=== PATIENT | male | born 1980 | race Caucasian/White ===

== ENCOUNTER 2019-08-25 16:29 | Inpatient (IN) | payer OTHER ==
[~2019-08-25] VITALS: Ht 165.1 cm; Wt 90.7 kg
--- NOTE | ~2019-08-25 | OP ---
PATIENT NAME: JANEL WILLIS MEDICAL RECORD: [id number] :78 LOCATION:[facility] ADMISSION DATE:08/25/19 SURGEON: NESTOR WANG MD DATE OF OPERATION: 08/26/2019 PREOPERATIVE DIAGNOSIS: Symptomatic incarcerated ventral hernia. POSTOPERATIVE DIAGNOSIS: Symptomatic incarcerated falciform ventral hernia. PROCEDURE: Laparoscopic incarcerated falciform ventral hernia repair with 4.[address] mesh with the echo positioning system. SURGEON: Nestor Wang MD ASSURANCE SOURCING MANAGER: None. BLOOD LOSS: Less than 50 cc. ANESTHESIA: General. COMPLICATIONS: None. The risks, possible complications and alternatives to the procedure were explained to the patient. He elects to proceed. Discussion specifically included, but was not limited to, bleeding requiring emergency reoperation, infection, intestinal injury as well as reherniation. OPERATIVE COURSE: The patient was conveyed the operating room electively on 08/26/2019. General anesthesia was induced by the anesthesia staff. The abdomen was sterilely prepped and draped. A transverse incision was accomplished in the left upper quadrant. A Veress needle was inserted through the skin yaz into the peritoneal cavity. CO2 insufflation was begun. Once a sufficient pneumoperitoneum had been achieved, a 12-mm trocar was inserted through this incision. Two 5-mm trocars were inserted in the right side of the abdomen and another 5-mm trocar was inserted in the left lower quadrant. During insertion of the Veress needle and all trocars, there appeared to have been no injury to the bowels, any intraperitoneal or retroperitoneal structures. I began to dissect some preperitoneal fat in the midline. I identified a small incarcerated umbilical hernia. We noted that he had an umbilical hernia preoperatively. We both agreed that we would not repair this as it would require a much larger mesh to cover both hernia defects. The umbilical hernia was asymptomatic. A prevesicular flap was created with the Harmonic scalpel. At no time was there any bladder injury. Intravenous methylene blue was given. We noted no leakage of methylene blue from the bladder. I took down the falciform ligament as well as the anterior portion of the triangular ligament of the liver. This was done with the Harmonic scalpel as well. I reduced the incarcerated contents, which consisted of preperitoneal fat as well as falciform ligament. This was reduced in its entirety. A small skin yaz was accomplished over the falciform hernia defect. I advanced the laparoscopic suture passer down through the falciform ligament hernia defect. OPERATIVE REPORT [id number] JANEL WILLIS I then advanced a Ventralight ST mesh through the 12-mm trocar. The tail of the positioning system was grasped with the laparoscopic suture passer and was withdrawn out through the skin. The tail was shortened. It was used to inflate the positioning system. The herniorrhaphy was accomplished with 2 different types of fixation devices. The Optifix was used circumferentially to tack the mesh in place and to position it. I then completed the herniorrhaphy with circumferential tacking of the SorbaFix Tacker. The positioning system was removed in its entirety. I aspirated. There was no bleeding even at low pressure of 8. The Lm-Dion suture closure device and 0 Vicryl sutures were used to close the muscle at the 12-mm trocar site. All the trocars were removed and the abdomen desufflated. The skin incisions were closed with interrupted intracuticular 3-0 Vicryls. Benzoin and Steri-Strips were applied. The patient was then extubated and conveyed to post-anesthesia care unit where he was in stable condition. He will be dismissed home later today on [place] as well as [place]. I will see him in the office in about 3 weeks. TRANSINT:[id number] Voice Confirmation ID: [id number] DOCUMENT ID: [id number] NESTOR WANG MD CC: NESTOR CARRASQUILLO MD, GARRY THEODORE MD and MIKEY BLUE [phone] DICTATION DATE: 08/26/19 1509 RN TEACHER: 08/26/192220 DIS IN 08/28/19 [facility] [address] [place] [address]
[2019-08-25 16:56] LABS: BASOPHILS 0.1 % (0-2); EOSINOPHILS 1.8 % (0-7); HEMATOCRIT 47.9 % (42.0-54.0); HEMOGLOBIN 17.4 g/dL (13.5-17.5); IMMATURE GRANULOCYTES 0.1 % (0-5); LYMPHOCYTES 21.8 % (15-50); MCH 32.3 pg (26.0-34.0); MCHC 36.3 g/dL (31.0-37.0); MCV 88.9 fL (80.0-100.0); MEAN PLATELET VOLUME 10.8 fL (7.4-10.4); MONOCYTES 8.5 % (2-11); NEUTROPHILS 67.7 % (40-80); PLATELET COUNT 259 10x3/uL (130-400); RBC 5.39 10x6/uL (4.20-6.10); RDW 12.3 % (11.5-14.5); WBC 7.3 10x3/uL (4.8-10.8)
[2019-08-25 17:07] LABS: CALC OSMOLALITY 276 mosm/kg (275-300); CALCIUM 8.8 mg/dL (8.5-10.1); CARBON DIOXIDE 28.7 mmol/L (21.0-32.0); CHLORIDE - SERUM 105 mmol/L (98-107); CREATININE - SERUM 1.5 mg/dL (0.6-1.3); GLUCOSE 104 mg/dL (74-106); SODIUM 138 mmol/L (136-145); UREA NITROGEN 15 mg/dL (7-18); eGFR NON AFRICAN AMERICAN 55 mL/min (90-120)
[2019-08-25 17:15] LABS: ALBUMIN 3.9 g/dL (3.4-5.0); ALKALINE PHOSPHATASE 62 U/L (30-120); ALT (SGPT) 17 U/L (10-68); AMYLASE - SERUM 50 U/L (25-115); LIPASE 121 U/L (73-393); PROTEIN - SERUM 6.9 g/dL (6.4-8.2); TROPONIN-I < 0.017 ng/mL (0.000-0.060)
[2019-08-25 18:07] VITALS: BP 124/76
[2019-08-25 18:14] LABS: BILIRUBIN NEGATIVE (NEGATIVE); GLUCOSE NEGATIVE (NEGATIVE); KETONE NEGATIVE (NEGATIVE); NITRITE NEGATIVE (NEGATIVE); UROBILINOGEN NORMAL (NORMAL)
[2019-08-25 18:42] VITALS: BP 142/81
--- NOTE | 2019-08-25 19:47 | NUR ---
ATTEMPTED TO CALL REPORT, NURSE ON FLOOR UNAVAILABLE AT THIS TIME.
[2019-08-25 20:53] VITALS: BP 111/52; BMI 33.3
[2019-08-26] VITALS (11 sets, daily range): BP systolic 105–145; BP diastolic 65–87; Ht 165.1 cm; Wt 90.7 kg
[2019-08-26 05:28] LABS: BASOPHILS 0.3 % (0-2); EOSINOPHILS 2.5 % (0-7); HEMATOCRIT 45.1 % (42.0-54.0); HEMOGLOBIN 15.9 g/dL (13.5-17.5); IMMATURE GRANULOCYTES 0.3 % (0-5); LYMPHOCYTES 27.2 % (15-50); MCH 31.6 pg (26.0-34.0); MCHC 35.3 g/dL (31.0-37.0); MCV 89.7 fL (80.0-100.0); MEAN PLATELET VOLUME 11.2 fL (7.4-10.4); MONOCYTES 7.6 % (2-11); NEUTROPHILS 62.1 % (40-80); PLATELET COUNT 266 10x3/uL (130-400); RBC 5.03 10x6/uL (4.20-6.10); RDW 12.5 % (11.5-14.5)
[2019-08-26 05:42] LABS: APTT 29.6 SECONDS (22.8-39.4); INR 1.05 (0.85-1.17); PROTIME 13.7 SECONDS (11.6-15.0)
[2019-08-26 06:33] LABS: ALBUMIN 3.5 g/dL (3.4-5.0); BILIRUBIN - TOTAL 1.11 mg/dL (0.2-1.3); CALCIUM 8.1 mg/dL (8.5-10.1); CARBON DIOXIDE 28.2 mmol/L (21.0-32.0); CREATININE - SERUM 1.3 mg/dL (0.6-1.3); MAGNESIUM - SERUM 2.2 mg/dL (1.8-2.4); PHOSPHOROUS 2.9 mg/dL (2.5-4.9); POTASSIUM - SERUM 4.2 mmol/L (3.5-5.1); PROTEIN - SERUM 6.3 g/dL (6.4-8.2)
--- NOTE | 2019-08-26 10:12 | NUR ---
RESTING IN BED, NPO FOR SURGERY, FAMILY IN ROOM, IV INFUSING WITH WINE SALES REPRESENTATIVE IN PLACE
--- NOTE | 2019-08-26 11:35 | NUR ---
TAKEN TO SURGERY PER BED
--- NOTE | 2019-08-26 14:52 | NUR ---
RETURNED FROM SURGERY, IV INFUSING, C/O NAUSEA, ABD WITH 4 SURGICAL SITES
--- NOTE | 2019-08-26 19:00 | NUR ---
BEDSIDE REPORT RECEIVED AND CARE OF PT ASSUMED. PT VERY UPSET THAT PAIN MED ISN'T WORKING AND GIVING HIM SEVERE HEADACHE. C/O TO DAY SHIFT NURSETIMOTHY THAT NO ONE HAS ANSWERED HIS CALL LIGHT TODAY, AND THAT AT ONE TIME HE WAS YELLING FOR HELP, AND NO ONE CAME. WILL CALL MD FOR ORDERS.
--- NOTE | 2019-08-26 19:15 | NUR ---
GAVE TYLENOL 650 MG PO FOR HEADACHE AND LOW GRADE TEMP OF 99.3 DEGREES.
--- NOTE | 2019-08-26 19:15 | NUR ---
PAGED DR WANG TO ADVISE THAT MORPHINE NOT HELPING PAIN AND CAUSING HEADACHE. TOLD HIM HOW UPSET PT IS WITH DAY SHIFT NURSE. RECEIVED ORDER TO D/C MORPHINE ENVIRONMENT COORDINATOR AND START DILAUDID ENVIRONMENT COORDINATOR 0.2/10/NO LOCKOUT. ALSO ORDER TO GIVE 1 MG DILAUDID IVP NOW, AND GIVE ATIVAN 1 MG IVP Q8HR SCHEDULED.
--- NOTE | 2019-08-26 20:08 | NUR ---
GAVE 1 MG ATIVAN IVP AND 1 MG DILAUDID IVP PER ORDER.
--- NOTE | 2019-08-26 20:08 | NUR ---
CHANGED RIDE ATTENDANT FROM MORPHINE TO DILAUDID. INSTRUCTED ON USE.
--- NOTE | 2019-08-26 21:30 | NUR ---
PROVIDED INCENTIVE INSPIROMETER AND INSTRUCTED ON USE.
--- NOTE | 2019-08-26 22:15 | NUR ---
RETURNED TELEMETRY TO BIG MACHINE CONSULTANT PT REFUSED TO HAVE PUT BACK ON.
[2019-08-27] VITALS: BP 131/68
--- NOTE | 2019-08-27 00:30 | NUR ---
PT AMBULATED AROUND UNIT WITH STAND BY ASSIST. POSITIONED BACK IN BED FOR COMFORT.
--- NOTE | 2019-08-27 01:16 | NUR ---
RECEIVED CALL FROM DR WANG TO CHANGED ATIVAN 1 MG IV TO Q6HR SCHEDULED, AND ADD TYLENOL 1000 MG PO Q6HR SCHEDULED.
--- NOTE | 2019-08-27 02:27 | NUR ---
PT RESTING QUIETLY IN SUPINE POSITION WITH EYES CLOSED AND EASY RESPIRATIONS. WILL CONTINUE TO MONITOR FOR NEEDS.
[2019-08-27 04:00] VITALS: BP 113/69
[2019-08-27 06:13] LABS: BASOPHILS 0.1 % (0-2); EOSINOPHILS 0.8 % (0-7); HEMATOCRIT 44.1 % (42.0-54.0); HEMOGLOBIN 15.5 g/dL (13.5-17.5); IMMATURE GRANULOCYTES 0.2 % (0-5); LYMPHOCYTES 15.1 % (15-50); MCH 31.6 pg (26.0-34.0); MCHC 35.1 g/dL (31.0-37.0); MONOCYTES 9.4 % (2-11); NEUTROPHILS 74.4 % (40-80); PLATELET COUNT 236 10x3/uL (130-400); RDW 12.3 % (11.5-14.5); WBC 9.1 10x3/uL (4.8-10.8)
[2019-08-27 06:57] LABS: ALBUMIN 3.4 g/dL (3.4-5.0); ANION GAP 9.7 mmol/L (8-16); BILIRUBIN - TOTAL 1.59 mg/dL (0.2-1.3); CREATININE - SERUM 1.2 mg/dL (0.6-1.3); PHOSPHOROUS 2.8 mg/dL (2.5-4.9); POTASSIUM - SERUM 3.7 mmol/L (3.5-5.1); PROTEIN - SERUM 6.2 g/dL (6.4-8.2)
--- NOTE | 2019-08-27 07:57 | NUR ---
RESTING COMFORTABLY IN BED WITH EYES CLOSED, EASILY AROUSED TO SPEECH. IV LOCATED TO LEFT FOREARM RUNNING NS @ 125ML, DILAUDID PETROPHYSICIST PRESENT. EMPTIED 300ML OF DARK GREEN URINE FROM URINAL, ASSISTED UP TO RESTROOM. NO S/S OF DISTRESS NOTED AT THIS TIME, DENIES CURRENT NEEDS, WILL CONT TO MONITOR.
[2019-08-27 08:00] VITALS: BP 114/70
[2019-08-27 12:00] VITALS: BP 103/63
[2019-08-27 16:00] VITALS: BP 118/66
--- NOTE | 2019-08-27 19:00 | NUR ---
BEDSIDE REPORT RECEIVED AND CARE OF PT ASSUMED. PT LYING IN LOW CORONEL'S POSITION TALKING ON THE PHONE. IV TO LEFT FA PATENT WITH NS INFUSING AT 125 ML/HR. ESCORT SERVICE ATTENDANT W/ DILAUDID IN USE FOR PAIN CONTROL. WILL MONITOR FOR NEEDS.
--- NOTE | 2019-08-27 19:56 | NUR ---
HS MEDICATIONS GIVEN TO INCLUDE 0.4 BOLUS DOSE OF DILAUDID PER REQUEST FOR PAIN. WILL CONTINUE TO MONITOR FOR NEEDS.;
[2019-08-27 20:00] VITALS: BP 114/71
--- NOTE | 2019-08-27 21:20 | NUR ---
DR WANG CALLED TO CHECK ON PT...TRANSFERRED INTO ROOM FOR HIM TO TALK TO PT FOR UPDATE. PT TO DISCHARGE IN AM.
--- NOTE | 2019-08-27 21:30 | NUR ---
RECEIVED ORDER TO GIVE 150ML MAG CITRATE X1 DOSE.
--- NOTE | 2019-08-27 22:30 | NUR ---
PT AMBULATED AROUND THE NURSES STATION.
[2019-08-28] VITALS: BP 117/70
--- NOTE | 2019-08-28 00:35 | NUR ---
GAVE 0.4 BOLUS DOSE OF DILAUDID VIA SENIOR DEVOPS ENGINEER...PT ANXIOUS AND HURTING AND IT ISN'T TIME FOR ATIVAN YET. WILL CONTINUE TO MONITOR FOR NEEDS.
[2019-08-28 04:00] VITALS: BP 128/78
[2019-08-28 05:16] LABS: BASOPHILS 0.1 % (0-2); EOSINOPHILS 1.7 % (0-7); HEMATOCRIT 43.1 % (42.0-54.0); HEMOGLOBIN 15.4 g/dL (13.5-17.5); IMMATURE GRANULOCYTES 0.3 % (0-5); LYMPHOCYTES 20.3 % (15-50); MCH 31.9 pg (26.0-34.0); MCHC 35.7 g/dL (31.0-37.0); MCV 89.2 fL (80.0-100.0); MEAN PLATELET VOLUME 10.9 fL (7.4-10.4); MONOCYTES 10.5 % (2-11); NEUTROPHILS 67.1 % (40-80); PLATELET COUNT 228 10x3/uL (130-400); RBC 4.83 10x6/uL (4.20-6.10); RDW 12.3 % (11.5-14.5); WBC 7.6 10x3/uL (4.8-10.8)
[2019-08-28 05:31] LABS: ALBUMIN 3.2 g/dL (3.4-5.0); ALKALINE PHOSPHATASE 48 U/L (30-120); ALT (SGPT) 17 U/L (10-68); BILIRUBIN - TOTAL 1.02 mg/dL (0.2-1.3); CALC OSMOLALITY 275 mosm/kg (275-300); CALCIUM 8.2 mg/dL (8.5-10.1); CARBON DIOXIDE 27.9 mmol/L (21.0-32.0); CHLORIDE - SERUM 106 mmol/L (98-107); CREATININE - SERUM 1.1 mg/dL (0.6-1.3); GLUCOSE 87 mg/dL (74-106); PHOSPHOROUS 3.1 mg/dL (2.5-4.9); PROTEIN - SERUM 6.1 g/dL (6.4-8.2); SODIUM 139 mmol/L (136-145); UREA NITROGEN 11 mg/dL (7-18); eGFR NON AFRICAN AMERICAN 79 mL/min (90-120)
--- NOTE | 2019-08-28 07:50 | NUR ---
HE IS VERY SLEEPY, BUT STILL USING THE LABOR SUPERVISOR. HIS 5 LAP SITES ARE GLUED. THE CALL [facility] IS WITHIN REACH.
[2019-08-28 09:07] VITALS: BP 118/77
--- NOTE | 2019-08-28 09:35 | MORECARE ---
CASE MANAGEMENT DISCHARGE SUMMARY PATIENT: JANEL WILLIS UNIT: [id number] ADM DATE: 08/25/19 AGE: 39 : 78 SEX: M ROOM/BED: D.2206 AUTHOR: LIZZY MONREAL PHYSICIAN: REFERRING PHYSICIAN: GARRY THEODORE MD DATE OF SERVICE: 08/28/19 Discharge Plan Patient Name: JANEL WILLIS Facility: [facility]:[place] : 1980 Planned Disposition: Home Anticipated Discharge Date: Discharge Date: Expected LOS: Initial Reviewer: [email or web address] Initial Review Date: 08/25/2019 Generated: 08/28/19 10:35 am DCPIA - Discharge Planning Initial Assessment Updated by [email or web address]: Ese Don on 08/28/19 9:34 am * Is the patient Alert and Oriented? Yes * How many steps to enter\exit or inside your home? * PCP [facility] * [facility] * Preadmission Environment Home with Family * ADLs Independent * Equipment Shower Chair * List name and contact numbers for known caregivers / representatives who currently or will assist patient after discharge: FRANKIE WILLIS -SPOUSE- [phone] * Verbal permission to speak to the caregivers and representatives has been obtained from the patient. Yes * Community resources currently utilized None * Additional services required to return to the preadmission environment? No * Can the patient safely return to the preadmission environment? Yes * Has this patient been hospitalized within the prior 30 days at any hospital? No Patient Name: JANEL WILLIS Page [phone] at 0935 All edits/amendments must be made on the electronic document DICTATION DATE: 08/28/19934 OPTICAL FABRICATOR: WENDY 08/28/19934 RPT#: [id number] DC DATE: STATUS: ADM IN [facility] [address] [place] [address] END OF REPORT
--- NOTE | 2019-08-28 09:43 | MORECARE ---
CASE MANAGEMENT DISCHARGE SUMMARY PATIENT: JANEL WILLIS UNIT: [id number] ADM DATE: 08/25/19 AGE: 39 : 78 SEX: M ROOM/BED: D.2206 AUTHOR: JOCELIN,DOC PHYSICIAN: REFERRING PHYSICIAN: GARRY THEODORE MD DATE OF SERVICE: 08/28/19 Discharge Plan Patient Name: JANEL WILLIS Facility: [facility]:[place] : 1980 Planned Disposition: Home Anticipated Discharge Date: Discharge Date: Expected LOS: Initial Reviewer: [email or web address] Initial Review Date: 08/25/2019 Generated: 08/28/19 10:43 am Comments DCP- Discharge Planning Updated by [email or web address]: Ese Don on 08/28/19 8:[address] Patient Name: JANEL WILLIS Admission Status: ER Accout number: [id number] Admission Date: 08-25-2019 : 1980 Admission Diagnosis: Attending: GARRY THEODORE Current LOS: 3 Anticipated DC Date: Planned Disposition: Home Primary Insurance: [facility] [employer] BENEFIT [facility] Discharge Planning Comments: CM met with patient to complete initial dc planning assessment. CM educated patient on the CM role and verbal consent given by patient to complete assessment. Patient lives at home with family. Patient is independent. At discharge patient plans to return home and feels this is a safe discharge. CM discussed availability of home health, rehab services, and medical equipment. Patient will have family to transport home. Patient denied known discharge needs at this time. CM will continue to follow and will assist as needed with dc plans/needs. Sample Sawyer: Ese Don DCPIA - Discharge Planning Initial Assessment Updated by [email or web address]: Ese Don on 08/28/19 9:34 am * Is the patient Alert and Oriented? Yes * How many steps to enter\exit or inside your home? * PCP [facility] * [facility] * Preadmission Environment Home with Family * ADLs Independent * Equipment Shower Chair * List name and contact numbers for known caregivers / representatives who currently or will assist patient after discharge: FRANKIE WILLIS -SPOUSE- [phone] * Verbal permission to speak to the caregivers and representatives has been obtained from the patient. Yes * Community resources currently utilized None * Additional services required to return to the preadmission environment? No * Can the patient safely return to the preadmission environment? Yes * Has this patient been hospitalized within the prior 30 days at any hospital? No Last DP export: 08/28/19 8:35 a Patient Name: JANEL WILLIS Page [phone] at 0943 All edits/amendments must be made on the electronic document DICTATION DATE: 08/28/19942 ER NURSE: DM 08/28/19942 RPT#: [id number] DC DATE: STATUS: ADM IN [facility] [address] [place] [address] END OF REPORT
[2019-08-28] MEDS ORDERED: HYDROCODON-ACE1 EAC7 PO (11:47)
[2019-08-28] MEDS ORDERED: COLACE100 MG PO (11:47)
--- NOTE | 2019-08-28 15:05 | NUR ---
IV REMOVED, PAPER WORK GONE OVER WITH, QUESTIONS ANSWERED, WRITTEN PRESCRITIONS GIVEN TO THE PATIENT FOR DANIELLA AND JOY. TAKEN TO THE ER VIA WHEELCHAIR.
--- NOTE | 2019-08-28 17:23 | MORECARE ---
CASE MANAGEMENT DISCHARGE SUMMARY PATIENT: JANEL WILLIS UNIT: [id number] ADM DATE: 08/25/19 AGE: 39 : 78 SEX: M ROOM/BED: D.2206 AUTHOR: JOCELIN,DOC PHYSICIAN: REFERRING PHYSICIAN: GARRY THEODORE MD DATE OF SERVICE: 08/28/19 Discharge Plan Patient Name: JANEL WILLIS Facility: [facility]:[place] : 1980 Planned Disposition: Home Anticipated Discharge Date: Discharge Date: 08/28/2019 Expected LOS: Initial Reviewer: [email or web address] Initial Review Date: 08/25/2019 Generated: 08/28/19 6:23 pm Comments DCP- Discharge Planning Updated by [email or web address]: Ese Don on 08/28/19 8:[address] Patient Name: JANEL WILLIS Admission Status: ER Accout number: [id number] Admission Date: 08-25-2019 : 1980 Admission Diagnosis: Attending: GARRY THEODORE Current LOS: 3 Anticipated DC Date: Planned Disposition: Home Primary Insurance: [facility] [employer] Discharge Planning Comments: CM met with patient to complete initial dc planning assessment. CM educated patient on the CM role and verbal consent given by patient to complete assessment. Patient lives at home with family. Patient is independent. At discharge patient plans to return home and feels this is a safe discharge. CM discussed availability of home health, rehab services, and medical equipment. Patient will have family to transport home. Patient denied known discharge needs at this time. CM will continue to follow and will assist as needed with dc plans/needs. Sales And Marketing Engineer: Ese Don DCPIA - Discharge Planning Initial Assessment Updated by [email or web address]: Ese Don on 08/28/19 9:34 am * Is the patient Alert and Oriented? Yes * How many steps to enter\exit or inside your home? * PCP [facility] * [facility] * Preadmission Environment Home with Family * ADLs Independent * Equipment Shower Chair * List name and contact numbers for known caregivers / representatives who currently or will assist patient after discharge: FRANKIE WILLIS -SPOUSE- [phone] * Verbal permission to speak to the caregivers and representatives has been obtained from the patient. Yes * Community resources currently utilized None * Additional services required to return to the preadmission environment? No * Can the patient safely return to the preadmission environment? Yes * Has this patient been hospitalized within the prior 30 days at any hospital? No Last DP export: 08/28/19 8:43 a Patient Name: JANEL WILLIS Page [phone] at 1723 All edits/amendments must be made on the electronic document DICTATION DATE: 08/28/191722 EMPLOYMENT AGENCY MANAGER: WENDY 08/28/191722 RPT#: [id number] DC DATE:08/28/19 STATUS: DIS IN [facility] [address] [place] [address] END OF REPORT
== END 2019-08-28 15:07 | disposition home or self-care (01) | DRG 354 ==
LOC: D.ER 16:29 → D.MS 18:19 → D.M2 18:19 → D.MS 20:11
PROVIDERS: Family Medicine; Surgery; ADMIT Internal Medicine Nephrology; ATTEND Internal Medicine Nephrology
PROC: 0WUF4JZ Supplement Abdominal Wall with Synthetic Substitute, Percutaneous Endoscopic Approach (ICD-10-PCS; principal; 2019-08-26 12:00)
DX: K43.6 Other and unspecified ventral hernia with obstruction, without gangrene (principal); N17.9 Acute kidney failure, unspecified; F90.9 Attention-deficit hyperactivity disorder, unspecified type

== ENCOUNTER 2019-09-05 17:23 | Emergency (ER) | payer OTHER ==
[~2019-09-05] VITALS: Ht 175.3 cm; Wt 86.4 kg
[~2019-09-05 17:23] MED LIST: COLACE100 MG PO; HYDROCODON-ACE1 EAC7 PO
[2019-09-05 17:31] VITALS: Ht 175.3 cm; Wt 86.4 kg
[2019-09-05 18:11] LABS: BASOPHILS 0.2 % (0-2); EOSINOPHILS 2.7 % (0-7); HEMATOCRIT 48.5 % (42.0-54.0); HEMOGLOBIN 17.5 g/dL (13.5-17.5); IMMATURE GRANULOCYTES 0.2 % (0-5); LYMPHOCYTES 25.3 % (15-50); MCH 32.1 pg (26.0-34.0); MCHC 36.1 g/dL (31.0-37.0); MEAN PLATELET VOLUME 10.3 fL (7.4-10.4); NEUTROPHILS 64.6 % (40-80); RBC 5.45 10x6/uL (4.20-6.10); RDW 11.9 % (11.5-14.5)
[2019-09-05 18:13] LABS: PLATELET COUNT 304 10x3/uL (130-400)
[2019-09-05 18:24] LABS: BILIRUBIN NEGATIVE (NEGATIVE); GLUCOSE NEGATIVE (NEGATIVE); KETONE NEGATIVE (NEGATIVE); NITRITE NEGATIVE (NEGATIVE); UROBILINOGEN NORMAL (NORMAL)
[2019-09-05 18:29] LABS: CALC OSMOLALITY 277 mosm/kg (275-300); CALCIUM 9.2 mg/dL (8.5-10.1); CARBON DIOXIDE 28.5 mmol/L (21.0-32.0); CHLORIDE - SERUM 101 mmol/L (98-107); CREATININE - SERUM 1.3 mg/dL (0.6-1.3); GLUCOSE 94 mg/dL (74-106); POTASSIUM - SERUM 3.9 mmol/L (3.5-5.1); SODIUM 138 mmol/L (136-145); UREA NITROGEN 18 mg/dL (7-18); eGFR NON AFRICAN AMERICAN 65 mL/min (90-120)
[2019-09-05 18:37] LABS: ALBUMIN 4.2 g/dL (3.4-5.0); ALKALINE PHOSPHATASE 87 U/L (30-120); ALT (SGPT) 29 U/L (10-68); AMYLASE - SERUM 63 U/L (25-115); BILIRUBIN - TOTAL 0.87 mg/dL (0.2-1.3); LIPASE 182 U/L (73-393); PROTEIN - SERUM 8.1 g/dL (6.4-8.2); TROPONIN-I < 0.017 ng/mL (0.000-0.060)
[2019-09-05] MEDS ORDERED: MIRALAX17 GM PO (20:28)
[2019-09-06 01:44] VITALS: BP 124/70
== END 2019-09-05 20:53 | disposition home or self-care (01) ==
LOC: D.ER 17:23
PROVIDERS: Family Medicine
DX: R10.12 Left upper quadrant pain (principal); K59.00 Constipation, unspecified